=== PATIENT | female | born 1975 | race Caucasian/White ===

== ENCOUNTER → 2016-06-11 | Outpatient (CLI) | payer BC, OTHER ==
[~2016-06-11] MED LIST: ALBU18HF INH; ALPR0.5T6 PO; CHOL500050 PO; ESCI10TA PO; LORA10TA3 PO
[2016-06-11 10:14] LABS: HEMOGLOBIN 13.8 g/dL (11.7-16.4)
[2016-06-11 10:27] LABS: ASPARTATE AMINO TRANSFERASE 11 U/L (15-37); BLOOD UREA NITROGEN 13 mg/dL (7-18)
== END | disposition home or self-care (01) ==
LOC: STAR 09:02
PROVIDERS: ATTEND Surgery
DX: E04.1 Nontoxic single thyroid nodule (principal); E04.2 Nontoxic multinodular goiter; E66.9 Obesity, unspecified
CPT/HCPCS: 36415; 80053; 84703; 85025; 86800

== ENCOUNTER 2016-06-16 06:14 | Observation (INO) | payer BC, OTHER ==
[~2016-06-16] VITALS: Ht 157.5 cm; Wt 83.4 kg
[2016-06-16] MEDS ORDERED: FENTANYL PF 250 MCG/5ML ONE (06:42)
[2016-06-16] MEDS ORDERED: MIDAZOLAM 1 MG/ML, 2ML ONE (06:42)
[2016-06-16] MEDS ORDERED: LACTATED RINGERS 1,000 ML IV SCH (06:52)
[2016-06-16 06:54] VITALS: BP 135/87
[2016-06-16] MEDS ORDERED: GABAPENTIN 300 MG CAPSULE PO SCH (07:00)
[2016-06-16] MEDS ORDERED: ACETAMINOPHEN 500 MG TABLET PO ONE (07:00)
[2016-06-16 07:18] LABS: HCG UR OBC PASS
[2016-06-16] MEDS ORDERED: ONDANSETRON 2MG/ML, 2ML ONE ×2 (07:25→09:32)
[2016-06-16] MEDS ORDERED: SUCCINYLCHOLINE 20 MG/ML, 10ML ONE (07:25)
[2016-06-16] MEDS ORDERED: DEXAMETHASONE 4 MG/ML, 1ML ONE (07:25)
[2016-06-16] MEDS ORDERED: PROPOFOL 10 MG/ML, 20ML ONE (07:25)
[2016-06-16] MEDS ORDERED: ACETAMINOPHEN 325 MG TABLET PO PRN (08:00)
[2016-06-16] MEDS ORDERED: OXYcodone 5 MG/5 ML ORAL.SOL UDC PO PRN (08:00)
[2016-06-16] MEDS ORDERED: PROMETHAZINE 25 MG/ML, 1ML IV PRN (08:00)
[2016-06-16] MEDS ORDERED: MEPERIDINE/PF 25MG/0.5ML IVPush PRN (08:00)
[2016-06-16] MEDS ORDERED: PNEUMOCOCCAL 23 VACCINE IM-VACC ONE (08:00)
[2016-06-16] MEDS ORDERED: ONDANSETRON 2MG/ML, 2ML IVPush PRN (08:00)
[2016-06-16] MEDS ORDERED: MIDAZOLAM 1 MG/ML, 2ML IV PRN (08:00)
[2016-06-16] MEDS ORDERED: FENTANYL PF 100 MCG/2ML ONE (09:30)
[2016-06-16] MEDS ORDERED: HYDROmorphone 2 MG/ML, 1ML ONE (09:30)
[2016-06-16] MEDS: FENTANYL PF 100 MCG/2ML IV PRN ×2 (09:36→09:50)
[2016-06-16] MEDS: HYDROmorphone 1 MG/ML, 1ML IV PRN ×2 (09:41→10:00)
[2016-06-16] MEDS ORDERED: OXYcodone/APAP 5/325MG TABLET PO PRN (11:30)
[2016-06-16] MEDS ORDERED: HYDROmorphone 1 MG/ML, 1ML IV PRN (11:30)
[2016-06-16] MEDS ORDERED: DIPHENHYDRAMINE 50 MG/ML, 1ML IVPush PRN (11:30)
[2016-06-16] MEDS ORDERED: ONDANSETRON ODT 4 MG PO PRN (11:30)
[2016-06-16] MEDS ORDERED: ALBUTEROL SULFATE 2.5 MG/3 ML HHN PRN (12:00)
[2016-06-16] MEDS: POTASSIUM CHLORIDE 20 MEQ in D5%-0.45% NACL 1,000 ML IV SCH ×2 (12:18→21:37)
[2016-06-16 12:40] VITALS: BP 120/79
[2016-06-16] MEDS ORDERED: [UNRECOGNIZED DRUG - REMARK] IM ONE (18:30)
[2016-06-16 19:50] VITALS: BP 130/83
[2016-06-16] MEDS ORDERED: CITALOPRAM 20 MG TABLET PO SCH (21:00)
[2016-06-16] MEDS: ACETAMINOPHEN 325 MG TABLET PO PRN (21:37)
[2016-06-17 00:23] VITALS: BP 113/70
[2016-06-17 03:50] VITALS: BP 114/72
[2016-06-17] MEDS: POTASSIUM CHLORIDE 20 MEQ in D5%-0.45% NACL 1,000 ML IV SCH ×2 (05:28→10:37)
[2016-06-17 07:53] VITALS: BP 117/76
[2016-06-17] MEDS ORDERED: PNEUMOCOCCAL 23 VACCINE IM-VACC ONE (08:00)
[2016-06-17] MEDS: ACETAMINOPHEN 325 MG TABLET PO PRN (08:45)
[2016-06-17] MEDS ORDERED: LORATADINE 10 MG TABLET PO SCH (09:00)
[2016-06-17 12:35] VITALS: BP 127/79
[2016-06-17] MEDS ORDERED: LEVO125T PO (13:39)
[2016-06-17] MEDS ORDERED: OXYC-302 PO (13:39)
== END 2016-06-17 13:50 | disposition home or self-care (01) ==
LOC: OUT 06:14 → 4NOR 10:47 → OUT 11:19 → 4NOR 11:20 → DCLOUNGE 06-17 13:30
PROVIDERS: ADMIT Surgery; ATTEND Surgery
DX: E04.2 Nontoxic multinodular goiter (principal); Z23 Encounter for immunization
CPT/HCPCS: 36415; 60240; 81025; 82040; 82310; 88307; 90471; 90732; 96374; C1760; G0378; J0330; J1100; J1170; J1200; J2250; J2405; J2704; J3010; J3480; J7120; Q0162